=== PATIENT | female | born 1970 | race Caucasian/White ===

== ENCOUNTER 2018-10-22 10:27 | Emergency (ER) | payer MEDICAID ==
--- NOTE | 2018-10-22 11:07 | ER Document Report ---
ED Medical Screen (RME) - General Chief Complaint: Flank Pain Stated Complaint: FLANK PAIN Time Seen by Provider: 10/22/18 11:01 Notes: 47-year-old female patient complaining of left flank pain for the past 3 days. She reports she had some pain 3 weeks ago, was diagnosed with UTI and put on Macrodantin. That prescription was filled on 10/10/2018. She was on doxycycline for 10 days on 09/21/2018. I have greeted and performed a rapid initial assessment of this patient. A comprehensive ED assessment and evaluation of the patient, analysis of test results and completion of the medical decision making process will be conducted by additional ED providers. TRAVEL OUTSIDE OF THE [place].S[place] IN LAST 30 DAYS: No - Related Data Allergies/Adverse Reactions: aspirin Allergy (Verified 10/22/18 11:02) ciprofloxacin [From Cipro] Allergy (Verified 10/22/18 11:02) propoxyphene Allergy (Verified 10/22/18 11:02) Past Medical History - Social History Chew tobacco use (# tins/day): No Frequency of alcohol use: None Drug Abuse: None Renal/ Medical History: Denies: Hx Peritoneal Dialysis Psychiatric Medical History: Reports: Hx Bipolar Disorder, Hx Depression Past Surgical History: Reports: Hx Abdominal Surgery - laproscopic, Hx Appendectomy, Hx Section, Hx Cholecystectomy - thinks it was removed Physical Exam - Vital signs Vitals: Temp Pulse Resp BP Pulse Ox 97.8 F 103 H 16 122/85 98 10/22/18 10:41 10/22/18 10:41 10/22/18 10:41 10/22/18 10:41 10/22/18 10:41 Course - Vital Signs Vital signs: Temp Pulse Resp BP Pulse Ox 97.8 F 103 H 16 122/85 98 10/22/18 10:41 10/22/18 10:41 10/22/18 10:41 10/22/18 10:41 10/22/18 10:41
[2018-10-22 11:20] LABS: APPEARANCE,URINE SLIGHTLY-CLOUDY; BILIRUBIN,URINE NEGATIVE (NEGATIVE); COLOR,URINE STRAW; GLUCOSE, URINE NEGATIVE (NEGATIVE); KETONES,URINE NEGATIVE (NEGATIVE); LEUKOCYTE ESTERASE,URINE TRACE (NEGATIVE); NITRITE,URINE NEGATIVE (NEGATIVE); PROTEIN,URINE NEGATIVE (NEGATIVE); URINE SPECIFIC GRAVITY 1.002; UROBILINOGEN,URINE NEGATIVE mg/dL (<2.0)
[2018-10-22] MEDS ORDERED: HYDROCODONE/ACETAMINOPHEN 5-325 MG TABLET PO ONE (11:22)
--- NOTE | 2018-10-22 11:25 | ER Document Report ---
ED GI/ - General Chief Complaint: Flank Pain Stated Complaint: FLANK PAIN Time Seen by Provider: 10/22/18 11:01 Notes: Chief complaint: Left flank pain History of complain:( obtained from----patient) 47 years old female presents today with left flank pain for the last 15 days. Was treated with Macrodantin for 5 days. During that time the pain improved then again started coming back again. She is having difficulty in passing urine but no dysuria or frequency. Denies any fever chills or other constitutional symptoms. Onset: As above Duration: Gradual Severity: Mild to moderate Quality: Sharp Context: UTI Exacerbating factor and relieving factors: None lean female REVIEW OF SYSTEMS: CONSTITUTIONAL : Denies fever, chills, or sweats. Denies recent illness. EENT: Denies eye, ear, throat, or mouth pain or symptoms. Denies nasal or sinus congestion or discharge. Denies throat, tongue, or mouth swelling or difficulty swallowing. CARDIOVASCULAR: Denies chest pain. Denies palpitations or racing or irregular heart beat. Denies ankle edema. RESPIRATORY: Denies cough, cold, or chest congestion. Denies shortness of b reath, difficulty breathing, or wheezing. GASTROINTESTINAL: Denies distention. Denies nausea, vomiting, or diarrhea. Denies blood in vomitus, stools, or per rectum. Denies black, tarry stools. D enies constipation. GENITOURINARY: Denies difficulty urinating, painful urination, burning, freque ncy, blood in urine, or discharge. FEMALE GENITOURINARY: Denies vaginal bleeding, heavy or abnormal periods, irregular periods. Denies vaginal discharge or odor. MUSCULOSKELETAL: Denies back or neck pain or stiffness. Denies joint pain or swelling. SKIN: Denies rash, lesions or sores. HEMATOLOGIC : Denies easy bruising or bleeding. LYMPHATIC: Denies swollen, enlarged glands. NEUROLOGICAL: Denies confusion or altered mental status. Denies passing out or loss of consciousness. Denies dizziness or lightheadedness. Denies headache. Denies weakness or paralysis or loss of use of either side. Denies problems with gait or speech. Denies sensory loss, numbness, or tingling. Denies seizures. PSYCHIATRIC: Denies anxiety or stress. Denies depression, suicidal ideation, or homicidal ideation. ALL OTHER SYSTEMS REVIEWED AND NEGATIVE. PHYSICAL EXAMINATION: GENERAL: Well-appearing, well-nourished and in no acute distress. HEAD: Atraumatic, normocephalic. EYES: Pupils equal round and reactive to light, extraocular movements intact, conjunctiva are normal. ENT: Nares patent, oropharynx clear without exudates. Moist mucous membranes. NECK: Normal range of motion, supple without lymphadenopathy LUNGS: Breath sounds clear to auscultation bilaterally and equal. No wheezes rales or rhonchi. HEART: Regular rate and rhythm without murmurs ABDOMEN: Soft, nontender, nondistended abdomen. No guarding, no rebound. No masses appreciated. Right flank tenderness noted Right flank tenderness noted on palpation Examination of genitals-deferred Musculoskeletal: Normal range of motion, no pitting or edema. No cyanosis. NEUROLOGICAL: Cranial nerves grossly intact. Normal speech, normal gait. Normal sensory, motor exams PSYCH: Normal mood, normal affect. SKIN: Warm, Dry, normal turgor, no rashes or lesions noted. Dictation was performed using [employer] voice recognition software TRAVEL OUTSIDE OF THE U.S. IN LAST 30 DAYS: No - HPI Notes: 10/22/18 11:24 Dictated - Related Data Allergies/Adverse Reactions: aspirin Allergy (Verified 10/22/18 11:02) ciprofloxacin [From Cipro] Allergy (Verified 10/22/18 11:02) propoxyphene Allergy (Verified 10/22/18 11:02) Past Medical History - Social History Smoking Status: Current Every Day Smoker Chew tobacco use (# tins/day): No Frequency of alcohol use: None Drug Abuse: None Lives with: Family Family History: Reviewed & Not Pertinent Patient has suicidal ideation: No Patient has homicidal ideation: No Renal/ Medical History: Denies: Hx Peritoneal Dialysis Psychiatric Medical History: Reports: Hx Bipolar Disorder, Hx Depression Past Surgical History: Reports: Hx Abdominal Surgery - laproscopic, Hx Appendectomy, Hx Section, Hx Cholecystectomy - thinks it was removed Review of Systems - Review of Systems Notes: Dictated Physical Exam - Vital signs Vitals: Temp Pulse Resp BP Pulse Ox 97.8 F 103 H 16 122/85 98 10/22/18 10:41 10/22/18 10:41 10/22/18 10:41 10/22/18 10:41 10/22/18 10:41 - Notes Notes: Dictated Course - Vital Signs Vital signs: Temp Pulse Resp BP Pulse Ox 97.8 F 103 H 16 122/85 98 10/22/18 10:41 10/22/18 10:41 10/22/18 10:41 10/22/18 10:41 10/22/18 10:41 - Laboratory Result Diagrams: 10/22/18 11:45 Laboratory results interpreted by me: 10/22/18 10/22/18 11:08 11:45 RDW 14.4 H Eosinophils % 6.2 H Ur Leukocyte Esterase TRACE H - Diagnostic Test Radiology reviewed: Reports reviewed - Left ureteric stone, multiple other stones in the kidney Discharge - Discharge Clinical Impression: Renal and ureteric calculus Condition: Fair Disposition: HOME, SELF-CARE Instructions: Kidney Stone ([facility]) Prescriptions: Hydrocodone Bit/Acetaminophen [Hydrocodon-Acetaminophen 5-325] 1 each PO TID #14 tablet
--- NOTE | 2018-10-22 12:01 | RADIOLOGY REPORT (SQ) ---
EXAM DESCRIPTION: CT ABD/PELVIS NO ORAL OR IV COMPLETED DATE/TIME: 10/22/2018 11:37 am REASON FOR STUDY: Kidney stone COMPARISON: None. TECHNIQUE: CT scan of the abdomen and pelvis performed without intravenous or oral contrast. Images reviewed with lung, soft tissue, and bone windows. Reconstructed coronal and sagittal MPR images revi ewed. All images stored on PACS. All CT scanners at this facility use dose modulation, iterative reconstruction, and/or weight based d osing when appropriate to reduce radiation dose to as low as reasonably achievable (ALARA). [facility]: Dose Right [facility]: CareDose [facility]: Dose Right [facility]: Teradose 4D [facility]: Smart [place] RADIATION DOSE: CT Rad equipment meets quality standard of care and radiation dose reduction techniq ues were employed. CTDIvol: 4.8 mGy. DLP: 213 mGy-cm.mGy. LIMITATIONS: None. FINDINGS: LOWER CHEST: No significant findings. No nodules or infiltrates. NON-CONTRASTED LIVER, SPLEEN, ADRENALS: Evaluation limited by lack of IV contrast. No identified sign ificant masses. PANCREAS: No masses. No peripancreatic inflammatory changes. GALLBLADDER: Surgically absent. RIGHT KIDNEY AND URETER: No suspicious masses. Assessment limited by lack of IV contrast. No signif icant calcifications. No hydronephrosis or hydroureter. LEFT KIDNEY AND URETER: No suspicious masses. Assessment limited by lack of IV contrast. There is a calcification in the proximal ureter measuring 6.1 mm. Multiple additional calcifications not clear ly within the ureter. Mild proximal hydronephrosis. AORTA AND RETROPERITONEUM: No aneurysm. No retroperitoneal masses or adenopathy. BOWEL AND PERITONEAL CAVITY: No obvious masses or inflammatory changes. No free fluid. APPENDIX: Surgically absent. PELVIS, BLADDER, AND ABDOMINAL WALL:No abnormal masses. No free fluid. Bladder normal. BONES: No significant findings. OTHER: No other significant finding. IMPRESSION: 6 mm calculus which appears to be in the proximal left ureter. Mild proximal hydronephr osis. Multiple additional calcifications more distal which do not appear to be within the ureter. COMMENT: Quality ID # [id number]: Final reports with documentation of one or more dose reduction techniques (e.g., Automated exposure control, adjustment of the mA and/or kV according to patient size, use of iterative reconstruction technique) TECHNICAL DOCUMENTATION: JOB ID: [id number] 3559[employer]- All Rights Reserved Reading location - IP/workstation name: [email or web address]
[2018-10-22 12:18] LABS: ABSOLUTE EOSINOPHILS # (AUTO) 0.5 10^3/uL (0.0-0.6); ABSOLUTE LYMPHOCYTES (AUTO) 2.9 10^3/uL (0.5-4.7); ABSOLUTE MONOCYTES (AUTO) 0.6 10^3/uL (0.1-1.4); ABSOLUTE NEUT (AUTO) 3.7 10^3/uL (1.7-8.2); BASOPHILS % (AUTO) 0.6 % (0-2); EOSINOPHILS % (AUTO) 6.2 % (0-6); HEMOGLOBIN 15.1 g/dL (12.0-15.5); LYMPHOCYTES % (AUTO) 38.1 % (13-45); MEAN CORPUSCULAR HEMOGLOBIN 32.6 pg (27.0-33.4); MEAN CORPUSCULAR HGB CONC 34.3 g/dL (32.0-36.0); MEAN CORPUSCULAR VOLUME 95 fl (80-97); MONOCYTES % (AUTO) 7.4 % (3-13); PLATELET COUNT 201 10^3/uL (150-450); RED BLOOD COUNT 4.62 10^6/uL (3.72-5.28); RED CELL DISTRIBUTION WIDTH 14.4 % (11.5-14.0); SEGMENTED NEUTROPHILS % (AUTO) 47.7 % (42-78); TOTAL CELLS COUNTED % (AUTO) 100 %; WHITE BLOOD COUNT 7.7 10^3/uL (4.0-10.5)
[2018-10-22 13:23] VITALS: BP 108/83
== END 2018-10-22 13:24 | disposition home or self-care (01) ==
LOC: ER 10:27
DX: N20.2 Calculus of kidney with calculus of ureter (principal); R10.9 Unspecified abdominal pain; F17.200 Nicotine dependence, unspecified, uncomplicated
CPT/HCPCS: 36415; 74176; 81001; 81025; 85025; 99284

== ENCOUNTER 2019-01-08 08:26 | Emergency (ER) | payer OTHER ==
[2019-01-08] MEDS ORDERED: ONDANSETRON HCL INJ/PF 4 MG/2 ML SDV IV ONE (09:29)
--- NOTE | 2019-01-08 09:31 | ER Document Report ---
ED Medical Screen (RME) - General Chief Complaint: Abdominal Pain Stated Complaint: ABDOMEN PAIN Time Seen by Provider: 01/08/19 09:29 Mode of Arrival: Ambulatory Information source: Patient TRAVEL OUTSIDE OF THE U.S. IN LAST 30 DAYS: No - HPI Patient complains to provider of: abd pain Onset: Other - pt with recent abd surgery in [place] (umbilical hernia repair) wiuth onset of abd pain and nausea 3 days days. Worse now. - Related Data Allergies/Adverse Reactions: aspirin Allergy (Verified 10/22/18 11:02) ciprofloxacin [From Cipro] Allergy (Verified 10/22/18 11:02) propoxyphene Allergy (Verified 10/22/18 11:02) Past Medical History Renal/ Medical History: Denies: Hx Peritoneal Dialysis Psychiatric Medical History: Reports: Hx Bipolar Disorder, Hx Depression Past Surgical History: Reports: Hx Abdominal Surgery - laproscopic & hernia, Hx Appendectomy, Hx Section, Hx Cholecystectomy - thinks it was removed Physical Exam - Vital signs Vitals: Temp Pulse Resp BP Pulse Ox 97.6 F 98 16 109/71 97 01/08/19 08:32 01/08/19 08:32 01/08/19 08:32 01/08/19 08:32 01/08/19 08:32 Course - Vital Signs Vital signs: Temp Pulse Resp BP Pulse Ox 97.6 F 98 16 109/71 97 01/08/19 08:32 01/08/19 08:32 01/08/19 08:32 01/08/19 08:32 01/08/19 08:32
[2019-01-08 10:00] LABS: ABSOLUTE BASOPHILS # (AUTO) 0.1 10^3/uL (0.0-0.2); ABSOLUTE EOSINOPHILS # (AUTO) 1.5 10^3/uL (0.0-0.6); ABSOLUTE MONOCYTES (AUTO) 0.8 10^3/uL (0.1-1.4); ABSOLUTE NEUT (AUTO) 3.2 10^3/uL (1.7-8.2); BASOPHILS % (AUTO) 0.8 % (0-2); EOSINOPHILS % (AUTO) 17.9 % (0-6); HEMATOCRIT 47.3 % (36.0-47.0); HEMOGLOBIN 16.1 g/dL (12.0-15.5); LYMPHOCYTES % (AUTO) 35.2 % (13-45); MEAN CORPUSCULAR HEMOGLOBIN 32.5 pg (27.0-33.4); MEAN CORPUSCULAR VOLUME 96 fl (80-97); MONOCYTES % (AUTO) 8.8 % (3-13); PLATELET COUNT 236 10^3/uL (150-450); RED BLOOD COUNT 4.95 10^6/uL (3.72-5.28); RED CELL DISTRIBUTION WIDTH 13.4 % (11.5-14.0); SEGMENTED NEUTROPHILS % (AUTO) 37.3 % (42-78); TOTAL CELLS COUNTED % (AUTO) 100 %; WHITE BLOOD COUNT 8.6 10^3/uL (4.0-10.5)
--- NOTE | 2019-01-08 10:00 | ER Document Report ---
ED General - General Chief Complaint: Abdominal Pain Stated Complaint: ABDOMEN PAIN Time Seen by Provider: 01/08/19 09:29 Mode of Arrival: Ambulatory TRAVEL OUTSIDE OF THE [place].S. IN LAST 30 DAYS: No - HPI Notes: 48-year-old female presents to the ED for complaints of generalized abdominal pain that has been occurring for the last week, had worsening pain this morning with one occurrence of vomiting. She reports she had umbilical hernia repair done in [facility] approximately 3 weeks ago laparoscopically. Was prescribed [place] 5 mg 325 mg reports that she brought her medication down here to [place] she is visiting family, she ran out of her medication, she did have another refill at [facility] in [place], states she tried to get her [facility] in [place] to refill her opioid prescription but they would not do that out of state. States she is going back to [place] tomorrow because she is "tired of being around her family". He did have a bowel movement this morning has not tried any [id number] medications for pain, states she has been out of her opioid prescription for the last 5 days or so. denies fevers, chills, chest pain,palpitations, shortness of breath, dyspnea, diarrhea, a hematuria,blurred vision, double vision, loss of vision, speech changes, LH, dizziness, syncope, headaches, wheezing, neck pain, weakness, bowel or bladder dysfunction, saddle anesthesia, numbness or tingling in bilateral upper or lower extremities equally, muscle paralysis, weakness in bilateral upper or lower extremities equally or rash. - Related Data Allergies/Adverse Reactions: aspirin Allergy (Verified 10/22/18 11:02) ciprofloxacin [From Cipro] Allergy (Verified 10/22/18 11:02) propoxyphene Allergy (Verified 10/22/18 11:02) Past Medical History - General Information source: Patient - Social History Smoking Status: Current Every Day Smoker Family History: Reviewed & Not Pertinent Patient has suicidal ideation: No Patient has homicidal ideation: No Renal/ Medical History: Denies: Hx Peritoneal Dialysis Psychiatric Medical History: Reports: Hx Bipolar Disorder, Hx Depression Past Surgical History: Reports: Hx Abdominal Surgery - laproscopic & hernia, Hx Appendectomy, Hx Section, Hx Cholecystectomy - thinks it was removed Review of Systems - Review of Systems Constitutional: No symptoms reported EENT: No symptoms reported Cardiovascular: No symptoms reported Respiratory: No symptoms reported Gastrointestinal: See HPI Genitourinary: No symptoms reported Female Genitourinary: No symptoms reported Musculoskeletal: No symptoms reported Skin: No symptoms reported Hematologic/Lymphatic: No symptoms reported Neurological/Psychological: No symptoms reported Physical Exam - Vital signs Vitals: Temp Pulse Resp BP Pulse Ox 97.6 F 98 16 109/71 97 01/08/19 08:32 01/08/19 08:32 01/08/19 08:32 01/08/19 08:32 01/08/19 08:32 - Notes Notes: PHYSICAL EXAMINATION: GENERAL: Chronically ill-appearing, well-nourished and in no acute distress. HEAD: Atraumatic, normocephalic. EYES: Pupils equal round and reactive to light, extraocular movements intact, conjunctiva are normal. ENT: Nares patent, oropharynx clear without exudates. Moist mucous membranes. NECK: Normal range of motion, supple without lymphadenopathy LUNGS: Breath sounds clear to auscultation bilaterally and equal. No wheezes rales or rhonchi. HEART: Regular rate and rhythm without murmurs ABDOMEN: Sounds are normal quadrants soft, nontender, nondistended abdomen. No guarding, no rebound. Generalized abdominal tenderness, laparoscopic incisional wounds healed, no surrounding erythema induration or swelling. No masses appreciated. Right greater than left CVA tenderness Female : deferred Musculoskeletal: Normal range of motion, no pitting or edema. No cyanosis. NEUROLOGICAL: Cranial nerves grossly intact. Normal speech, normal gait. Normal sensory, motor exams PSYCH: Normal mood, normal affect. SKIN: Warm, Dry, normal turgor, no rashes or lesions noted. Course - Re-evaluation Re-evalutation: 01/08/19 11:14 40-year-old female afebrile vitals stable with right greater than left CVA tenderness. Patient did have an episode of nephrolithiasis in October 2018, stones were possible, patient did not follow-up with processing mgr or primary care provider, patient was seen also ER for this particular issue. Patient did have umbilical hernia repair approximately 3 weeks ago and" [place], patient states she has not followed up with her surgeon pain. States she has been prescribed at least opioid prescriptions and she was unable to get her second prescription due to being out of state to her, prescription was going to call her in more narcotics since she is out of state and she would have to be seen. Patient states she vomited once today, having slight abdominal discomfort. Pain control with patient does have a boyfriend driving home today if she is discharged. CBC negative for anemia or leukocytosis, CMP negative for renal dysfunction, AST slightly elevated not concerning for acute etiology. Urinal ysis Negative for UTI, hematuria or proteinuria. CT abdomen pelvis with IV contrast is post appendectomy, hysterectomy and cholecystectomy with intact laparoscopic ventral hernia repair noted left retroperitoneal phlebolith, no urinary calculi, hydronephrosis or hydroureter noted. Discussed with patient that she will need to follow-up with surgeon as well as primary care provider, will give patient [place] here but only 6 tablets, do not drive, drink or operate patients can cause sedation or impairment of cognitive function, advised to increase oral hydration. Follow-up with primary care provider, normal mood provider. As well as surgeon awake overnight monitor for reevaluation. After performing a Medical Screening Examination, I estimate there is LOW risk for ACUTE APPENDICITIS, BOWEL OBSTRUCTION, ACUTE CHOLECYSTITIS, PERFORATED DIVERTICULITIS, INCARCERATED HERNIA, PANCREATITIS, PELVIC INFLAMMATORY DISEASE, PERFORATED ULCER, ECTOPIC , or TUBO-OVARIAN ABSCESS, thus I consider the discharge disposition reasonable. Also, there is no evidence or peritonitis, sepsis, or toxicity. I have reevaluated this patient multiple times and no significant life threatening changes are noted. The patient and I have discussed the diagnosis and risks, and we agree with discharging home with close follow-up with the understanding that symptoms and presentations can change. We also discussed returning to the Emergency Department immediately if new or worsening symptoms occur. We have discussed the symptoms which are most concerning (e.g., bloody stool, fever, changing or worsening pain, vomiting) that necessitate immediate return. - Vital Signs Vital signs: Temp Pulse Resp BP Pulse Ox 97.6 F 98 16 109/71 97 01/08/19 08:32 01/08/19 08:32 01/08/19 08:32 01/08/19 08:32 01/08/19 08:32 - Laboratory Result Diagrams: 01/08/19 09:30 01/08/19 09:30 Laboratory results interpreted by me: 01/08/19 01/08/19 09:30 09:30 Hgb 16.1 H Hct 47.3 H Seg Neutrophils % 37.3 L Eosinophils % 17.9 H Absolute Eosinophils 1.5 H Calcium 10.7 H AST 50 H Total Protein 8.5 H Discharge - Discharge Clinical Impression: History of ventral hernia repair, History of renal calculi Abdominal pain Qualifiers: Abdominal location: generalized Qualified Code(s): R10.84 - Generalized abdominal pain Condition: Stable Disposition: HOME, SELF-CARE Instructions: Abdominal Pain ([facility]), Antinausea Medication ([facility]), Oral Narcotic Medication ([facility]), Low-Fat Diet ([facility]), Toradol Injection ([facility]), Pain Medication Injection ([facility]) Additional Instructions: Abdominal Pain There are many causes of abdominal pain. Pain can mean a serious problem requiring surgery (such as appendicitis). It can also be an innocent problem that goes away on its own (such as a viral infection). Often, time must pass to determine the cause of pain. The physician does not feel that hospitalization is necessary, at present. Things may change within the next 24 hours. Call the doctor or come back for re- examination if any problems occur, such as: (1) Pain that becomes more severe, steady, or becomes concentrated in one specific area. Also, pain that is more severe with movement or coughing. (2) Vomiting that persists or becomes more frequent. (3) Blood in the vomitus, urine, or bowel movements. Blood in the stool may have a tarry or black appearance. (4) Shaking chills or fever greater than 100 degrees F. (5) The abdomen becomes more distended or swollen. (6) Bowel movements cease. (7) Failure to improve as expected. Your CT of the abdomen pelvis was negative for any acute findings, have an intact ventral hernia repair, your appendix has been removed, your gallbladder is been removed, he had a complete hysterectomy, there are no stones, you do not have a kidney infection, you left for completely normal. Follow-up with your surgeon or name of the surgeon has been provided within the primary care provider, return to the ED for experiencing any vomiting, severe abdominal pain, heart pain shortness of breath, high fevers, etc. Return immediately for any new or worsening symptoms. Follow up with primary care provider, call tomorrow to make followup a ppointment. Prescriptions: Ondansetron [Zofran Odt 4 mg Tablet] 1 - 2 tab PO Q4H PRN #15 tab.rapdis PRN Reason: For Nausea/Vomiting Referrals: REBECCA BERRIOS MD [ACTIVE STAFF] - Follow up in 3-5 days HAVEN COLE MD [ACTIVE STAFF] - Follow up in 3-5 days
[2019-01-08 10:21] LABS: APPEARANCE,URINE CLEAR; BILIRUBIN,URINE NEGATIVE (NEGATIVE); COLOR,URINE YELLOW; GLUCOSE, URINE NEGATIVE (NEGATIVE); KETONES,URINE NEGATIVE (NEGATIVE); LEUKOCYTE ESTERASE,URINE NEGATIVE (NEGATIVE); NITRITE,URINE NEGATIVE (NEGATIVE); PROTEIN,URINE NEGATIVE (NEGATIVE); URINE SPECIFIC GRAVITY 1.009; UROBILINOGEN,URINE NEGATIVE mg/dL (<2.0)
[2019-01-08 10:23] LABS: ALANINE AMINOTRANSFERASE 24 U/L (9-52); ALKALINE PHOSPHATASE 61 U/L (38-126); ANION GAP 8 (5-19); ASPARTATE AMINO TRANSFERASE 50 U/L (14-36); BILIRUBIN,DIRECT 0.4 mg/dL (0.0-0.4); BILIRUBIN,TOTAL 0.9 mg/dL (0.2-1.3); BLOOD UREA NITROGEN 18 mg/dL (7-20); CALCIUM 10.7 mg/dL (8.4-10.2); CARBON DIOXIDE 27 mmol/L (22-30); CHLORIDE 105 mmol/L (98-107); GLUCOSE 91 mg/dL (75-110); LIPASE 248.8 U/L (23-300); POTASSIUM 4.6 mmol/L (3.6-5.0); SODIUM 139.7 mmol/L (137-145); TOTAL PROTEIN 8.5 g/dL (6.3-8.2)
[2019-01-08] MEDS ORDERED: MORPHINE SULFATE 10 MG/ML INJ IV ONE (11:08)
[2019-01-08] MEDS ORDERED: KETOROLAC TROMETHAMINE INJ/PF 30 MG/1 ML SDV IV ONE (11:08)
--- NOTE | 2019-01-08 11:08 | RADIOLOGY REPORT (SQ) ---
EXAM DESCRIPTION: CT ABD/PELVIS WITH IV ONLY COMPLETED DATE/TIME: 01/08/2019 10:52 am REASON FOR STUDY: abd pain COMPARISON: CT abdomen pelvis 10/22/2018 TECHNIQUE: CT scan of the abdomen and pelvis performed using helical scanning technique with dynamic intravenous contrast injection. No oral contrast. Images reviewed with lung, soft tissue, and bone windows. Reconstructed coronal and sagittal MPR images reviewed. Delayed images for evaluation of the urinary system also acquired. All images stored on PACS. All CT scanners at this facility use dose modulation, iterative reconstruction, and/or weight based d osing when appropriate to reduce radiation dose to as low as reasonably achievable (ALARA). [facility]: Dose Right [facility]: CareDose [facility]: Dose Right [facility]: Teradose 4D [facility]: [place] CONTRAST TYPE AND DOSE: contrast/concentration: Isovue 350.00 mg/ml; Total Contrast Delivered: 45.0 ml; Total Saline Delivered: 65.0 ml RENAL FUNCTION: Creatinine 0.5 RADIATION DOSE: CT Rad equipment meets quality standard of care and radiation dose reduction techniq ues were employed. CTDIvol: 4.8 mGy. DLP: 673 mGy-cm.. LIMITATIONS: None. FINDINGS: LOWER CHEST: No significant findings. No nodules or infiltrates. LIVER: Normal size. No masses. No dilated ducts. SPLEEN: Normal size. No focal lesions. PANCREAS: No masses. No significant calcifications. No adjacent inflammation or peripancreatic fluid collections. Pancreatic duct not dilated. GALLBLADDER: Surgically absent ADRENAL GLANDS: Normal size, no masses RIGHT KIDNEY AND URETER: No solid masses. No significant calcifications. No hydronephrosis or hyd roureter. LEFT KIDNEY AND URETER: No solid masses. No significant calcifications. No hydronephrosis or hydr oureter. There is a left retroperitoneal phlebolith lateral to the course of the mid 3rd ureter, bes t shown on axial series 5, image 42. This measures 6 mm in diameter. AORTA AND VESSELS: No aneurysm. No dissection. Renal arteries, SMA, celiac without stenosis. RETROPERITONEUM: No retroperitoneal adenopathy, hemorrhage or masses. BOWEL AND PERITONEAL CAVITY: No masses or inflammatory changes. No free fluid or peritoneal masses. APPENDIX: Surgically absent PELVIS: No mass. No free fluid. Normal bladder. Post hysterectomy ABDOMINAL WALL: Intact laparoscopic umbilical hernia repair BONES: No significant or acute findings. OTHER: No other significant finding. IMPRESSION: Post appendectomy, hysterectomy and cholecystectomy with intact laparoscopic ventral her isac repair. Left retroperitoneal phlebolith. No urinary calculi, hydronephrosis or hydroureter. TECHNICAL DOCUMENTATION: JOB ID: [id number] Quality ID # [id number]: Final reports with documentation of one or more dose reduction techniques (e.g., Au tomated exposure control, adjustment of the mA and/or kV according to patient size, use of iterative reconstruction technique) 2010 [employer]- All Rights Reserved Reading location - IP/workstation name: [email or web address]
[2019-01-08] MEDS ORDERED: HYDROCODONE/ACETAMINOPHEN 5-325 MG (6 TAB/ER DISP) PO PRN (11:23)
[2019-01-08 11:43] VITALS: BP 154/72
== END 2019-01-08 11:40 | disposition home or self-care (01) ==
LOC: ER 08:26
DX: R10.84 Generalized abdominal pain (principal); T40.2X6A Underdosing of other opioids, initial encounter; Z91.128 Patient's intentional underdosing of medication regimen for other reason; Z91.14 Patient's other noncompliance with medication regimen; R11.10 Vomiting, unspecified; I87.8 Other specified disorders of veins; R74.0 Nonspecific elevation of levels of transaminase and lactic acid dehydrogenase [LDH]; Z98.890 Other specified postprocedural states; Z87.442 Personal history of urinary calculi; Z88.6 Allergy status to analgesic agent; Z88.1 Allergy status to other antibiotic agents; Z88.5 Allergy status to narcotic agent
CPT/HCPCS: 99284; 96374; 96375; 36415; 83690; 85025; 81025; 80053; 81001; 74177; J1885; J2270; J2405